=== PATIENT | female | born 1965 | race Caucasian/White ===

== ENCOUNTER 2016-09-22 22:43 | Inpatient (IN) | payer OTHER ==
[~2016-09-22] VITALS: Ht 167.6 cm; Wt 113.4 kg
[2016-09-23 02:33] LABS: HEMOGLOBIN 13.7 gm/dl (12.3-15.3); RED BLOOD COUNT 4.99 M/UL (4.00-5.10); WHITE BLOOD COUNT 8.1 K/UL (4.5-11.0)
[2016-09-23 02:53] LABS: BUN/CREATININE RATIO 39 (0-10)
[2016-09-23] MEDS ORDERED: GLUCOPHAGE1000 MG PO (16:25)
[2016-09-23] MEDS ORDERED: METOPROLOL TART25 MG PO (16:26)
[2016-09-23] MEDS ORDERED: NEURONTIN 300300 MG PO (16:27)
[2016-09-23] MEDS ORDERED: VISTARIL50 MG PO (16:27)
[2016-09-23] MEDS ORDERED: POTASSIUM CHLO20 ME1 PO (16:28)
[2016-09-23] MEDS ORDERED: PLETAL 100 MG100 MG PO (16:28)
[2016-09-23] MEDS ORDERED: FISH OIL 1,0001 EAC5 PO (16:28)
[2016-09-23] MEDS ORDERED: MAGNESIUM100 MG PO (16:29)
[2016-09-23] MEDS ORDERED: NORVASC 5 MG TAB5 MG PO (16:30)
[2016-09-23] MEDS ORDERED: COZAAR 50MG TAB50 MG PO (16:30)
[2016-09-23] MEDS ORDERED: ZOLOFT50 MG PO (16:30)
[2016-09-23] MEDS ORDERED: ZOCOR10 MG PO ×2 (16:31→16:32)
[2016-09-23] MEDS ORDERED: NOVOLOG FL100 UNIT/1 SQ (16:35)
[2016-09-23] MEDS ORDERED: TOUJEO SQ (16:36)
[2016-09-23] MEDS ORDERED: MULTI-DAY VITA1 EACH PO (16:37)
[2016-09-23 19:57] LABS: BUN/CREATININE RATIO 27 (0-10)
[2016-09-24 05:27] LABS: HEMOGLOBIN 12.1 gm/dl (12.3-15.3)
[2016-09-24 05:28] LABS: RED BLOOD COUNT 4.49 M/UL (4.00-5.10); WHITE BLOOD COUNT 4.7 K/UL (4.5-11.0)
[2016-09-24 05:51] LABS: BUN/CREATININE RATIO 33 (0-10)
[2016-09-24] MEDS ORDERED: LANTUS INS100 UTS/M1 SQ (17:24)
== END 2016-09-24 18:30 | disposition home or self-care (01) | DRG 641 ==
LOC: ER1 22:43 → M/S 09-23 08:15 → ZEROF 09-23 08:15 → M/S 09-23 14:39
PROVIDERS: Family Medicine; Physician Assistant Medical; ADMIT Hospitalist
DX: E87.2 Acidosis (principal); E11.65 Type 2 diabetes mellitus with hyperglycemia; T38.3X5A Adverse effect of insulin and oral hypoglycemic [antidiabetic] drugs, initial encounter; Y92.009 Unspecified place in unspecified non-institutional (private) residence as the place of occurrence of the external cause; E83.42 Hypomagnesemia; I10 Essential (primary) hypertension; E78.5 Hyperlipidemia, unspecified; D69.6 Thrombocytopenia, unspecified; G47.33 Obstructive sleep apnea (adult) (pediatric); K76.0 Fatty (change of) liver, not elsewhere classified; F32.9 Major depressive disorder, single episode, unspecified; R00.0 Tachycardia, unspecified; E27.8 Other specified disorders of adrenal gland; G47.30 Sleep apnea, unspecified; Z88.2 Allergy status to sulfonamides; Z88.8 Allergy status to other drugs, medicaments and biological substances; Z79.84 Long term (current) use of oral hypoglycemic drugs; Z79.4 Long term (current) use of insulin; Z79.899 Other long term (current) drug therapy; Z82.49 Family history of ischemic heart disease and other diseases of the circulatory system
CPT/HCPCS: 36415; 36600; 71010; 80048; 80053; 81001; 82009; 82550; 82553; 82803; 82962; 83036; 83605; 83690; 83735; 83874; 84439; 84443; 84484; 85025; 85027; 87040; 87086; 93005; 96372; 96374; 99285; J0696; J1815; J2543; J7030; J7050; Q0162

== ENCOUNTER 2017-01-12 18:22 | Emergency (ER) | payer OTHER ==
[~2017-01-12 18:22] MED LIST: COZAAR 50MG TAB50 MG PO; FISH OIL 1,0001 EAC5 PO; GLUCOPHAGE1000 MG PO; LANTUS INS100 UTS/M1 SQ; MAGNESIUM100 MG PO; METOPROLOL TART25 MG PO; MULTI-DAY VITA1 EACH PO; NEURONTIN 300300 MG PO; NORVASC 5 MG TAB5 MG PO; NOVOLOG FL100 UNIT/1 SQ; PLETAL 100 MG100 MG PO; POTASSIUM CHLO20 ME1 PO; TOUJEO SQ; VISTARIL50 MG PO; ZOCOR10 MG PO; ZOLOFT50 MG PO
[2017-01-12 19:49] LABS: HEMOGLOBIN 12.6 gm/dl (12.3-15.3); RED BLOOD COUNT 4.74 M/UL (4.00-5.10)
[2017-01-12 20:07] LABS: BUN/CREATININE RATIO 39 (0-10)
== END 2017-01-12 22:30 | disposition home or self-care (01) ==
LOC: ER1 18:22
PROVIDERS: Nurse Practitioner Family
DX: L03.115 Cellulitis of right lower limb (principal); E11.40 Type 2 diabetes mellitus with diabetic neuropathy, unspecified; I10 Essential (primary) hypertension; Z88.1 Allergy status to other antibiotic agents; Z88.2 Allergy status to sulfonamides
CPT/HCPCS: 73610; 73630; 80048; 82962; 84550; 85025; 86140; 87040; J1815; J1885; J7030

== ENCOUNTER → 2020-05-08 | Outpatient (CLI) | payer MEDICARE, OTHER ==
[~2020-05-08] MED LIST changes: +COLACE 100MG C100 MG PO; +FOSAMAX70 MG PO; +KEFLEX500 MG PO; +LOPRESSOR50 MG PO; -MAGNESIUM100 MG PO; +MAGNESIUM400 MG PO; -METOPROLOL TART25 MG PO; +PERCOCET 10-321 EACH PO; +PHENERGAN 25 MG25 M1 PO; +VITAMIN C 500500 MG PO; +VITAMIN D5000 UNIT PO; +ZOFRAN4 MG PO
== END ==
LOC: KOH-I 16:15
DX: M14.672 Charcot's joint, left ankle and foot (principal); M14.671 Charcot's joint, right ankle and foot; M19.072 Primary osteoarthritis, left ankle and foot; M21.42 Flat foot [pes planus] (acquired), left foot; S92.001A Unspecified fracture of right calcaneus, initial encounter for closed fracture; Z98.1 Arthrodesis status; X58.XXXA Exposure to other specified factors, initial encounter
CPT/HCPCS: 73630

== ENCOUNTER → 2020-10-20 | Outpatient (CLI) | payer MEDICARE | LOC: KOH-I 11:02 | DX: M14.672 Charcot's joint, left ankle and foot (principal); M14.671 Charcot's joint, right ankle and foot | CPT/HCPCS: 73630 ==

== ENCOUNTER 2020-12-19 10:59 | Emergency (ER) | payer MEDICARE ==
[2020-12-19 12:56] LABS: HEMOGLOBIN 12.5 gm/dl (12.3-15.3); RED BLOOD COUNT 4.68 M/UL (4.00-5.10); WHITE BLOOD COUNT 7.4 K/UL (4.5-11.0)
[2020-12-19 13:18] LABS: BUN/CREATININE RATIO 38 (0-10)
== END 2020-12-19 13:46 | disposition home or self-care (01) ==
LOC: ER1 10:59
PROVIDERS: Student in an Organized Health Care Education/Training Program
DX: E87.6 Hypokalemia (principal); E11.9 Type 2 diabetes mellitus without complications; I10 Essential (primary) hypertension; Z88.2 Allergy status to sulfonamides; Z88.1 Allergy status to other antibiotic agents
CPT/HCPCS: 80053; 85025; 99283

== ENCOUNTER → 2021-01-20 | Outpatient (CLI) | payer MEDICARE | LOC: KOH-I 11:03 | DX: M79.672 Pain in left foot (principal); M79.671 Pain in right foot; R93.6 Abnormal findings on diagnostic imaging of limbs | CPT/HCPCS: 73630 ==

== ENCOUNTER → 2021-03-21 | Outpatient (CLI) | payer MEDICARE | LOC: RAD 14:27 | DX: L97.529 Non-pressure chronic ulcer of other part of left foot with unspecified severity (principal) | CPT/HCPCS: 73502; 73610; 73630 ==

== ENCOUNTER → 2021-04-13 | Outpatient (CLI) | payer MEDICARE | LOC: KOH-I 14:21 | DX: M79.672 Pain in left foot (principal); M79.671 Pain in right foot | CPT/HCPCS: 73630 ==

== ENCOUNTER → 2021-05-25 | Outpatient (CLI) | payer MEDICARE | LOC: KOH-I 08:37 | DX: M79.671 Pain in right foot (principal) | CPT/HCPCS: 73630 ==

== ENCOUNTER → 2021-08-31 | Outpatient (CLI) | payer MEDICARE | LOC: KOH-I 10:49 | DX: M79.672 Pain in left foot (principal); M79.671 Pain in right foot; M19.071 Primary osteoarthritis, right ankle and foot; M19.072 Primary osteoarthritis, left ankle and foot | CPT/HCPCS: 73630 ==

== ENCOUNTER → 2021-11-23 | Outpatient (CLI) | payer MEDICARE | LOC: KOH-I 15:33 | DX: M79.672 Pain in left foot (principal); M79.671 Pain in right foot; A52.16 Charcot's arthropathy (tabetic) | CPT/HCPCS: 73630 ==